=== PATIENT | female | born 1985 | race Caucasian/White ===

== ENCOUNTER 2016-08-18 11:08 | Emergency (ER) | payer SELFPAY ==
[2016-08-18 11:44] VITALS: TEMP 98.7; BMI 26.2
[2016-08-18 11:59] LABS: AUTOMATED BASOPHIL 0.5 % (0-2); AUTOMATED LYMPH 29.5 % (17-44); AUTOMATED MONOCYTE 7.7 % (3-10); AUTOMATED NEUTROPHIL 60.3 % (45-76); MPV 9.4 fL (7.4-10.4)
[2016-08-18 12:14] LABS: BLOOD UREA NITROGEN 11 MG/DL (7-17); CALCIUM 9.5 MG/DL (8.4-10.2); CALCULATED OSMOLALITY 267 MOs/Kg (270-290); CHLORIDE 103 mEq/L (98-107); GLUCOSE 103 MG/DL (70-99); SODIUM LEVEL 139 mEq/L (137-146); TOTAL PROTEIN 7.6 G/DL (6.3-8.2)
[2016-08-18 12:30] LABS: QUANTITATIVE SERUM HCG 132.8 mIU/mL (<5)
[2016-08-18] MEDS ORDERED: ACETAMINOPHEN 325 MG/TAB TABLET PO ONE (14:52)
--- NOTE | 2016-08-18 14:54 | EDPRACDOC ---
- General Information Chief Complaint: Vaginal Bleeding Stated Complaint: ? PREG. C/O VAGINAL BLEEDING Time Seen by Provider: 08/18/16 13:32 Mode of Arrival: Car Home Medications: Home Medications Multivitamin [Multiple Vitamins] 1 each PO DAILY 08/18/16 Allergies/Adverse Reactions: Allergies Allergy/AdvReac Type Severity Reaction Status Date / Time morphine Allergy Unknown Verified 08/18/16 11:34 - History of Present Illness Onset: two days HPI: Pt c/o R abd pain, back pain, vaginal bleeding x 2 days. States bleeding and clots when wiping. 2+ home preg tests. Denies fever, cp, sob, changes in bowel or bladder, rash. A1, LMP Description: Reports: Spontaneous Relevant History: Reports: Currently : 4 Para: 2 Total Number of Abortions: 1 Last Menstrual Period: Jun 2016 Control Method: Reports: None Blood Type: Unknown Pain Severity: Moderate Vaginal Bleeding Description: Reports: Bright Red, Clotted # Pads Used in the Last 12/24 Hours: 2 Associated Signs & Symptoms: Reports: Abdominal Pain, Vaginal Bleeding, Other ( back pain) ED Past Medical History - History Reviewed Yes Nurses notes reviewed and agree except as marked - Patient Medical History Systemic History: Denies: Cancer, Anemia, Lupus - Family Medical History Reports: Hypertension, Cardiac Disorders. Denies: Diabetes, Cancer, Stroke - Social Medical History Smoking Status: Never smoker ETOH: None Substance Abuse: None EDM Review of Systems - Review of Systems Constitutional: No Symptoms Reported. negative: Fever, Chills, Weakness, Fatigue, Loss of Appetite Ears: No Symptoms Reported. negative: Pain, Hearing Loss, Drainage, Ear Pulling Throat: No Symptoms Reported. negative: Pain, Swelling Nose: No Symptoms Reported. negative: Congestion, Bleeding, Discharge, Injection, Swelling, Deformity, Ecchymosis, Tender, Abrasion, Laceration Mouth: No Symptoms Reported. negative: Pain, Drooling Respiratory: No Symptoms Reported. negative: Cough, Brassy Cough, Barky Cough, Shortness of Breath, Wheezing, Hemoptysis Cardiovascular: No Symptoms Reported. negative: Chest Pain, Palpitations, Syncope, Edema, Orthopnea, PND, Skin Mottling, Cyanosis Gastrointestinal: Pain Genitourinary: Bleeding, Neurological: No Symptoms Reported. negative: Headache, Dizziness, Seizure, Numbness, Weakness, Speech Difficulty, Gait Difficulty Musculoskeletal: Back Integumentary: No Symptoms Reported. negative: Itching, Rash, Bruising, Wound Allergic/Immunologic: No Symptoms Reported. negative: Hives, Itching Hematologic: No Symptoms Reported. negative: Lymphadenopathy, Easy Bruising, Easy Bleeding Psychiatric: No Symptoms Reported. negative: Anxiety, Depression, Hallucinations, Insomnia, Suicidal - Physical Exam Constitutional: Alert Oriented to: Time, Person, Place Last recorded Vital Signs: Last Vital Signs Temp 98.7 F 08/18/16 11:40 Pulse 77 08/18/16 11:40 Resp 18 08/18/16 11:40 BP 103/66 08/18/16 11:40 Pulse Ox 99 08/18/16 11:40 Oxygen Pulse Oxygen Saturation 99 O2 Device Room Air Oxygen Flow Rate Fraction of Inspired Oxygen ( FIO2) - HEENT Head: Normal ( normocephalic) Eye Exam: Normal (PERRL, EOMI, Sclera white) Neck: Normal (FROM, trachea at midline) - Respiratory/Cardiovascular Respiratory: Normal - CTA (BBS clear to auscultation without adventitious sounds ) Cardiovascular: Normal (RRR without murmur, gallop or rub) - GI Auscultation: Normal (NABS) Palpation: Normal (Soft,No rebound or guarding, non distended) Tenderness: Mild, RLQ - Musculoskeletal Back: Normal (Non-Tender) Extremities: Normal (Normal tone, Pulses 2+ No cyanosis or edema, FROM) - Integumentary Skin: Normal, Warm, Dry Lymphatics: Normal (no adenopathy) - Neurologic Memory Impaired: Normal Motor Function: Normal (Normal tone, Pulses 2+ No cyanosis or edema, FROM) Mood Description: Normal Perception: Normal ED Vaginal Exam External: Normal Vaginal Exam: Blood Vaginal Lesions: None Vaginal Discharge: None Cervix: Blood - Differential Diagnosis Ectopic , Incomplete , Threatened , UTI - Results 08/18/16 11:50 08/18/16 11:50 WBC 7.8 xk/uL (3.8-10.8) 08/18/16 11:50 RBC 4.61 xM/uL (4.20-5.40) 08/18/16 11:50 Hgb 14.1 g/dL (12.0-16.0) 08/18/16 11:50 Hct 42.1 % (36-47) 08/18/16 11:50 MCV 91 fL (81-99) 08/18/16 11:50 MCH 30.7 pg (27-32) 08/18/16 11:50 MCHC 33.6 g/dl (33-36) 08/18/16 11:50 RDW 12.9 % (11.5-14.5) 08/18/16 11:50 Plt Count 226 xk/uL (130-400) 08/18/16 11:50 MPV 9.4 fL (7.4-10.4) 08/18/16 11:50 Neut % (Auto) 60.3 % (45-76) 08/18/16 11:50 Lymph % (Auto) 29.5 % (17-44) 08/18/16 11:50 [place] % (Auto) 7.7 % (3-10) 08/18/16 11:50 Eos % (Auto) 2.0 % (0-5) 08/18/16 11:50 Baso % (Auto) 0.5 % (0-2) 08/18/16 11:50 Absolute Neuts (auto) 4.68 xk/uL (1.7-8.2) 08/18/16 11:50 Absolute Lymphs (auto) 2.26 xk/uL (0.65-4.75) 08/18/16 11:50 Sodium 139 mEq/L (137-146) 08/18/16 11:50 Potassium 4.0 mEq/L (3.5-5.1) 08/18/16 11:50 Chloride 103 mEq/L (98-107) 08/18/16 11:50 Carbon Dioxide 26 mMOL/L (22-33) 08/18/16 11:50 Anion Gap 14 mEq/L (8-16) 08/18/16 11:50 BUN 11 MG/DL (7-17) 08/18/16 11:50 Creatinine 0.50 MG/DL (0.52-1.04) L 08/18/16 11:50 Estimated GFR (MDRD) > 60 mL/min (>=60) 08/18/16 11:50 Glucose 103 MG/DL (70-99) H 08/18/16 11:50 Calculated Osmolality 267 MOs/Kg (270-290) L 08/18/16 11:50 Calcium 9.5 MG/DL (8.4-10.2) 08/18/16 11:50 Total Bilirubin 0.4 MG/DL (0.2-1.3) 08/18/16 11:50 AST 28 IU/L (14-36) 08/18/16 11:50 ALT 40 IU/L (9-52) 08/18/16 11:50 Alkaline Phosphatase 85 IU/L (38-126) 08/18/16 11:50 Total Protein 7.6 G/DL (6.3-8.2) 08/18/16 11:50 Albumin 4.1 G/DL (3.5-5.0) 08/18/16 11:50 Beta HCG, Quant 132.8 mIU/mL (<5) 08/18/16 11:50 Lab Results 08/18/16 08/18/16 11:50 11:50 WBC 7.8 RBC 4.61 Hgb 14.1 Hct 42.1 MCV 91 MCH 30.7 MCHC 33.6 RDW 12.9 Plt Count 226 MPV 9.4 Neut % (Auto) 60.3 Lymph % (Auto) 29.5 [place] % (Auto) 7.7 Eos % (Auto) 2.0 Baso % (Auto) 0.5 Absolute Neuts (auto) 4.68 Absolute Lymphs (auto) 2.26 Sodium 139 Potassium 4.0 Chloride 103 Carbon Dioxide 26 Anion Gap 14 BUN 11 Creatinine 0.50 L Estimated GFR (MDRD) > 60 Glucose 103 H Calculated Osmolality 267 L Calcium 9.5 Total Bilirubin 0.4 AST 28 ALT 40 Alkaline Phosphatase 85 Total Protein 7.6 Albumin 4.1 Beta HCG, Quant 132.8 - Diagnostic Imaging Abdomen Image interpreted by: Radiologist IMPRESSION: Probable early intrauterine gestational sac, but no yolk sac, pole, or cardiac activity yet visualized. Recommend follow-up quantitative B-HCG levels and follow-up US in 14 days to confirm and assess viability. This recommendation follows SRU consensus guidelines: Diagnostic Criteria for Nonviable Early in the First Trimester. N Engl J Med 2013; 369:1443-51. No pelvic free fluid or ovarian mass identified. Decision Time to Discharge: 16:56 - Departure Disposition: Home Condition: Good Final Diagnosis: Threatened Instructions: Threatened Miscarriage (ED) Education/Counseling Given To: Patient Education/Counseling Given Regarding: Diagnosis, Treatment, Follow Up Referrals: None,No Provider [Primary Care Provider] - One Week Jose Cruz Avila MD [Staff Physician] - One Week Prescriptions: No Action Multivitamin [Multiple Vitamins] 1 each PO DAILY Additional Instructions: Return to the Emergency Department for increasing or different abdominal pain, vaginal bleeding that soaks two pads per hour for two hours, feeling like you might pass out, or any concerns. Follow up with OB in 2 days for repeat Beta Quant. Tylenol as needed for pain.
[2016-08-18 15:31] LABS: LEUKOCYTES/URINE NEG (NEGATIVE); NITRITE/URINE NEG (NEGATIVE); RBC/URINE 0-2 (0-5); URINE OCCULT BLOOD 1+ (NEG/TRACE); WBC/URINE 0-2 (0-5)
--- NOTE | 2016-08-18 16:54 | DIRPT ---
CLINICAL DATA: 31-year-old female with vaginal bleeding for 2 days in the first trimester of . Quantitative beta HCG 132.8. Estimated gestational age by LMP 5 weeks and 5 days. Initial encounter. EXAM: OBSTETRIC <14 WK US AND TRANSVAGINAL OB US TECHNIQUE: Both transabdominal and transvaginal ultrasound examinations were performed for complete evaluation of the gestation as well as the maternal uterus, adnexal regions, and pelvic cul-de-sac. Transvaginal technique was performed to assess early . COMPARISON: None relevant FINDINGS: Intrauterine gestational sac: Questionable small gestational sac in the uterine fundus (image 35) Yolk sac: Not visible Embryo: Not visible Cardiac Activity: Not detected MSD: 3.6 mm 5 w 1 d Subchorionic hemorrhage: No subchorionic hemorrhage or pelvic free fluid. Maternal uterus/adnexae: The right ovary appears normal measuring 2.5 x 2.9 x 1.0 cm. The left ovary appears normal measuring 2.7 x 1.9 x 2.0 cm. No ovarian mass. IMPRESSION: Probable early intrauterine gestational sac, but no yolk sac, pole, or cardiac activity yet visualized. Recommend follow-up quantitative B-HCG levels and follow-up US in 14 days to confirm and assess viability. This recommendation follows SRU consensus guidelines: Diagnostic Criteria for Nonviable Early in the First Trimester. N Engl J Med 2013; 369:1443-51. No pelvic free fluid or ovarian mass identified. Electronically Signed By: Ade Castro M.D. On: 08/18/2016 16:51
[2016-08-18 17:15] VITALS: BP 118/64; PULSE 64
[2016-08-20 12:39] LABS: CHLAMY BY NUCLEIC ACID AMP Negative (Negative)
[2016-08-20 14:20] LABS: GC BY NUCLEIC ACID AMP Negative (Negative)
== END 2016-08-18 17:10 | disposition home or self-care (01) ==
LOC: ED 11:08
DX: O20.0 Threatened abortion (principal); Z3A.00 Weeks of gestation of pregnancy not specified
CPT/HCPCS: 36415; 76801; 76817; 80053; 81001; 84702; 85025; 87210; 87220; 87491; 87591; 99284; J3490

== ENCOUNTER 2016-08-20 11:40 | Emergency (ER) | payer SELFPAY ==
[2016-08-20 11:59] VITALS: TEMP 98.4; BMI 22.2
--- NOTE | 2016-08-20 12:30 | EDPRACDOC ---
- General Information Chief Complaint: Vaginal Bleeding Stated Complaint: BACK PAIN VAGINAL BLEEDING Information Source: Patient Home Medications: Home Medications Vits W-Ca,Fe,FA(<1Mg) [] 1 tab PO DAILY 08/20/16 Allergies/Adverse Reactions: Allergies Allergy/AdvReac Type Severity Reaction Status Date / Time morphine Allergy Unknown Verified 08/18/16 11:34 - History of Present Illness Onset: 2 days HPI: Pt here 2 days ago for with vaginal bleeding. Beta quant 132.8. Pt advised to get repeat quant 2 days later. pt came here. C/o increased vaginal bleeding with clots and cont lower back pain. Denies fever, N/V/D, sob, cp, abdo pain, vaginal sx, changes in urine or BM. Med hx = none. Surgical hx = 1 c section. Description: Reports: Spontaneous Location: Reports: Internal Vagina Relevant History: Reports: Currently Pain Severity: Mild Vaginal Bleeding Description: Reports: Bright Red, Clotted Associated Signs & Symptoms: Reports: Vaginal Bleeding ED Past Medical History - History Reviewed Yes Nurses notes reviewed and agree except as marked - Patient Medical History Psychological History: Denies: Depression Systemic History: Denies: Cancer, Anemia, Lupus Surgical History: Denies: Hysterectomy - Family Medical History Reports: Hypertension, Cardiac Disorders. Denies: Diabetes, Cancer, Stroke - Social Medical History Smoking Status: Never smoker EDM Review of Systems - Review of Systems ROS Negative Except as Marked: Yes All systems reviewed and were negative except as marked Genitourinary: Vaginal Bleeding Musculoskeletal: Back (lower back pain) - Physical Exam Constitutional: No apparent distress, Alert Oriented to: Time, Person, Place Last recorded Vital Signs: Last Vital Signs Temp 98.4 F 08/20/16 11:54 Pulse 71 08/20/16 11:54 Resp 16 08/20/16 11:54 BP 129/69 08/20/16 11:54 Pulse Ox 98 08/20/16 11:54 Oxygen Pulse Oxygen Saturation 98 O2 Device Room Air Oxygen Flow Rate Fraction of Inspired Oxygen ( FIO2) - HEENT Head: Normal Eye Exam: negative: Conjunctival Injection, Scleral Icterus Oropharynx: negative: Drooling TMJ: Normal Nose: No Symptoms Reported Neck: Normal - Respiratory/Cardiovascular Respiratory: Normal - CTA Cardiovascular: Normal - GI Auscultation: Normal Palpation: Normal Tenderness: Non tender - Musculoskeletal Back: Normal Extremities: Normal - Integumentary Skin: Normal - Neurologic Mood Description: Normal Thought: Coherent Perception: Normal ED Vaginal Exam External: Normal Vaginal Exam: Blood Vaginal Lesions: None Vaginal Discharge: None Cervix: Blood. negative: Tissue Uterus: Normal size - Other Exam Other Exam Findings: mild cervical and adnexal tenderness bilaterally - Results 08/20/16 12:50 08/20/16 12:50 Decision Time to Discharge: 13:39 - Departure Disposition: Home Condition: Stable Final Diagnosis: Spontaneous Instructions: Miscarriage (ED) Education/Counseling Given To: Patient Education/Counseling Given Regarding: Diagnosis, Treatment, Prognosis, Follow Up Referrals: None,No Provider [Primary Care Provider] - One Week Prescriptions: No Action Vits W-Ca,Fe,FA(<1Mg) [] 1 tab PO DAILY Additional Instructions: Follow up with [facility] [employer] to make sure beta quant level returns to zero. Return to ED for any new or worsening symptoms.
[2016-08-20 13:05] LABS: AUTOMATED BASOPHIL 0.5 % (0-2); AUTOMATED LYMPH 28.8 % (17-44); AUTOMATED NEUTROPHIL 58.7 % (45-76); MPV 9.5 fL (7.4-10.4)
[2016-08-20 13:18] LABS: BLOOD UREA NITROGEN 12 MG/DL (7-17); CALCIUM 9.2 MG/DL (8.4-10.2); CALCULATED OSMOLALITY 269 MOs/Kg (270-290); CHLORIDE 104 mEq/L (98-107); GLUCOSE 98 MG/DL (70-99); SODIUM LEVEL 140 mEq/L (137-146); TOTAL PROTEIN 7.9 G/DL (6.3-8.2)
[2016-08-20 13:21] LABS: LEUKOCYTES/URINE NEG (NEGATIVE); NITRITE/URINE NEG (NEGATIVE); URINE OCCULT BLOOD NEG (NEG/TRACE); WBC/URINE 0-2 (0-5)
[2016-08-20 13:34] LABS: QUANTITATIVE SERUM HCG 59.9 mIU/mL (<5)
[2016-08-20 14:02] VITALS: BP 130/70; PULSE 74
== END 2016-08-20 14:01 | disposition home or self-care (01) ==
LOC: ED 11:40
DX: O03.9 Complete or unspecified spontaneous abortion without complication (principal)
CPT/HCPCS: 36415; 80053; 81001; 84702; 85025; 87210; 87220; 99283